=== PATIENT | male | born 1995 | race Caucasian/White ===

== ENCOUNTER 2020-02-26 12:39 | Emergency (ER) | payer SELFPAY ==
[~2020-02-26] VITALS: Ht 167.6 cm; Wt 59.0 kg
[2020-02-26] MEDS ORDERED: LORazepam Inj 2mg/ml 1ml IM ONE (12:45)
[2020-02-26] MEDS ORDERED: DiphenhydrAMINE 50mg/ml Inj IM ONE (12:45)
[2020-02-26] MEDS ORDERED: Haloperidol 5mg/ml Inj IM ONE ×2 (12:45→16:15)
--- NOTE | 2020-02-26 13:30 | NUR ---
brought in by prai with complaints patient has been taking patient to [facility] for [facility] eval due to bizzrae behavior on the way per officers he hit his head on the car window and sustained lacerstion on forehead. so officers brought him to er and palced him on 3860 hold
--- NOTE | 2020-02-26 13:35 | NUR ---
ED Nurse Note: Patient presented bizarre, screaming out loud, spitting on the nurses, refusing all care. Patient was plaxced on 5150 hold by Officer Jarad barr # [id number].
--- NOTE | 2020-02-26 13:38 | NUR ---
ED Nurse Note: patient was undressed, all pts belongings in locker #2
--- NOTE | 2020-02-26 14:45 | NUR ---
ED Nurse Note: IV established on left AC 18ga, blood collected sent to lab
[2020-02-26 15:20] VITALS: BP 136/78
--- NOTE | 2020-02-26 15:44 | Diagnostic Imaging Report ---
Indications: Trauma, forehead laceration, pain Technique: Spiral acquisitions obtained through the brain. Angled axial and coronal 5 x 5 mm slices were reconstructed. Total dose length product 1018 mGycm. CTDI vol(s) 53 mGy. Dose reduction achieved using automated exposure control Comparison: None. Findings: No acute intracranial hemorrhage or edema. No mass effect or midline shift. Normal wallace-white differentiation. Normal size ventricles and extra axial CSF spaces. Visualized orbits and sinuses are unremarkable. The calvarium is intact. The mastoids are clear. Impression: Negative The CT scanner at [facility] is accredited by the [employer] and the scans are performed using protocols designed to limit radiation exposure to as low as reasonably achievable to attain images of sufficient resolution adequate for diagnostic evaluation.
[2020-02-26 15:52] LABS: BASOPHILS % (AUTO) 0.6 % (0.0-2.0); EOSINOPHILS % (AUTO) 0.1 % (0.0-3.0); HEMATOCRIT 49.1 % (42.0-52.0); HEMOGLOBIN 16.6 G/DL (14.2-18.0); LYMPHOCYTES % (AUTO) 7.7 % (20.0-45.0); MEAN CORPUSCULAR VOLUME 97 FL (80-99); MONOCYTES % (AUTO) 3.2 % (1.0-10.0); NEUTROPHILS % (AUTO) 88.4 % (45.0-75.0); PLATELET COUNT 271 K/UL (150-450); RED BLOOD COUNT 5.05 M/UL (4.70-6.10); RED CELL DISTRIBUTION WIDTH 12.5 % (11.6-14.8); WHITE BLOOD COUNT 17.5 K/UL (4.8-10.8)
[2020-02-26 17:55] VITALS: BP 74/78
[2020-02-26 18:17] LABS: ANION GAP 13 mmol/L (5-15); BLOOD UREA NITROGEN 15 mg/dL (7-18); CALCIUM 9.2 MG/DL (8.5-10.1); CARBON DIOXIDE 24 MMOL/L (21-32); CHLORIDE 105 MMOL/L (98-107); SODIUM 142 MMOL/L (136-145)
[2020-02-26 18:22] LABS: ALANINE AMINOTRANSFERASE 32 U/L (12-78); ALKALINE PHOSPHATASE 87 U/L (46-116); ASPARTATE AMINO TRANSFERASE 60 U/L (15-37); BILIRUBIN,TOTAL 0.3 MG/DL (0.2-1.0)
--- NOTE | 2020-02-26 18:32 | NUR ---
ED Nurse Note: patient awake, AAO x4, all VSS at this time was able to ambulate to the bathroom with steady gait, sandwsiches and juice were provided
--- NOTE | 2020-02-26 19:11 | Emergency Room Report ---
History of Present Illness General Chief Complaint: Behavioral Complaint Source: Patient, EMS Present Illness HPI 25-year-old male with possible underlying schizophrenia bipolar disorder brought in by [employer] on a 5150 hold. PD was on his way to draw the patient at [facility] on a 5150 hold for danger to others as he was being aggressive toward an employee at [employer]. In route patient started hitting his head to to the barrier in PD's car and got a laceration on forehead. PD decided with the patient here for medical clearance and placing him here on a 5150 hold. Patient is excessively combative, using foul language. Patient has been placed in rest raints. Administration of Haldol, Benadryl, Ativan had to be done immediately. 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 Patient History Past Surgical History: unable to obtain Family History: unable to obtain Immunizations: other Reviewed Nursing Documentation: PMH: Agreed; PSxH: Agreed Nursing Documentation-PMH Past Medical History: Deferred Review of Systems All Other Systems: negative except mentioned in HPI Physical Exam Vital Signs Date Time Temp Pulse Resp B/P (MAP) Pulse Ox O2 Delivery O2 Flow Rate FiO2 02/26/20 13:25 96.8 121 20 141/79 (99) 96 Room Air Sp02 EP Interpretation: reviewed, normal General Appearance: alert/responsive Head: other - Laceration noted forehead Eyes: PERRL, lids + conjunctiva normal ENT: hearing intact, no angioedema Neck: supple/symm/no masses Respiratory: effort normal, no rhonchi, no wheezing Cardiovascular: regular rate, rhythm, no murmur, gallop, rub Gastrointestinal: non-tender, no mass, non-distended, no rebound/guarding, normal bowel sounds Musculoskeletal: gait & station normal Neurologic: oriented x3, sensory intact, normal speech Lymphatic: normal inspection Procedures Critical Care Time Critical Care Time Total critical care time; approximately 31 minutes. Due to a high probability of clinically significant, life threatening deterioration, the patient required my highest level of preparedness to intervene emergently and I personally spent this critical care time directly and personally managing the patient. This critical care time included obtaining a history; examining the patient; pulse oximetry; ordering and reviewing of studies; arranging urgent treatment with development of a management plan; evaluation of patient's response to treatment; frequent reassessment; and, discussions with other providers. This critical care time was performed to assess and manage the high probability of imminent, life-threatening deterioration that could result in multiorgan failure it was exclusive of separate billable procedures and treating other patients and teaching time. Please see MDM section and the rest of the note for further information on patient assessment and treatment. Laceration/Wound Repair Laceration/Wound Repair : Consent: Verbal Wound Location: head Wound's Depth, Shape: superficial Wound Length (cm): 1 Wound Explored: contaminated Wound Repaired With: Dermabond Layer Closure?: Yes Sterile Dressing Applied?: Yes Splint Applied?: No Sling Applied?: No Patient Tolerated: Well Complications: None Medical Decision Making PA Attestation All my diagnosis and treatment plans were reviewed ad discussed with my supervising physician Dr. Jeffers Diagnostic Impression: Primary Impression: Self-destructive behavior Additional Impression: Laceration ER Course 25-year-old male with possible underlying schizophrenia bipolar disorder brought in by [employer] on a 5150 hold. PD was on his way to draw the patient at [facility] on a 5150 hold for danger to others as he was being aggressive toward an employee at [employer]. In route patient started hitting his head to to the barrier in PD's car and got a laceration on forehead. PD decided with the patient here for medical clearance and placing him here on a 5150 hold. Patient is excessively combative, using foul language. Patient has been placed in restraints. Administration of Haldol, Benadryl, Ativan had to be done immediately. Ddx considered but are not limited to: generalized anxiety disorder, panic attack, depression with psychotic feature, bipolar disorder, drug overdose Vital signs: are WNL, pt. is afebrile H&PE are most consistent with: Self-destructive behavior, forehead laceration ORDERS: Psychiatric order set ED INTERVENTIONS: Dermabond, NS bolus After several hours of ED and administration of medication patient woke up, remember exactly what has happened, remember how he injured his head, apologized for his behavior, and was compliant Patient is medically cleared Patient to be transferred to psychiatric facility Last Vital Signs Date Time Temp Pulse Resp B/P (MAP) Pulse Ox O2 Delivery O2 Flow Rate FiO2 02/26/20 17:55 96.8 80 18 74/78 98 Room Air Disposition: PSYCH HOSP/UNIT Condition: Stable Referrals: NOT CHOSEN IPA/,REFERRING (PCP) Ciara Pandey Feb 26, 2020 19:11
--- NOTE | 2020-02-26 19:17 | NUR ---
HAND-OFF: Report given to LEW Warner..
--- NOTE | 2020-02-26 19:19 | NUR ---
ED Nurse Note: received report from giacomo salazar.
--- NOTE | 2020-02-26 19:55 | NUR ---
ED Nurse Note: Repeat alcohol level sent
[2020-02-26 20:21] LABS: APPEARANCE,URINE TURBID; BILIRUBIN, URINE NEGATIVE (NEGATIVE); GLUCOSE, URINE (UA) NEGATIVE (NEGATIVE); KETONES,URINE 2+ (NEGATIVE); LEUKOCYTE ESTERASE ,URINE 1+ (NEGATIVE); NITRITE,URINE NEGATIVE (NEGATIVE); PH,URINE 6 (4.5-8.0); PROTEIN,URINE 2+ (NEGATIVE); UROBILINOGEN,URINE 1 MG/DL (0.0-1.0)
[2020-02-26 20:24] LABS: COLOR,URINE YELLOW
[2020-02-26 22:05] VITALS: BP 112/75
--- NOTE | 2020-02-26 22:06 | NUR ---
ED Nurse Note: patient resting in bed, calm and cooperative. nad noted.
[2020-02-27 01:00] VITALS: BP 118/74
--- NOTE | 2020-02-27 04:00 | NUR ---
ED Nurse Note: patient is calm and cooperative, resting comfortably in bed.
[2020-02-27 05:37] VITALS: BP 115/72
[2020-02-27] MEDS ORDERED: LORazepam 1mg tab ORAL ONE (06:45)
[2020-02-27] MEDS ORDERED: Thiamine 100mg tab ORAL ONE (07:00)
--- NOTE | 2020-02-27 07:30 | NUR ---
HAND-OFF: Report given to giacomo andrews.
--- NOTE | 2020-02-27 07:48 | NUR ---
ED Nurse Note: pt calm and cooperative with rn. tolerates meds given well. awaiting breakfast tray. pt aware awaiting awaiting psych placement. amb steady gait to brp. denies c/o at this time.
--- NOTE | 2020-02-27 10:47 | NUR ---
ED Nurse Note: per dr hart pt is cleared to be off 5150 hold. pt denies SI/HI. pt is calm with staff. pt relates he feels safe to go back to his area on the street and declines placement assistance. iv site out intactly.
--- NOTE | 2020-02-27 10:48 | NUR ---
ED Nurse Note: dr fowler aware of dr hart recommendations.
[2020-02-27 11:21] VITALS: BP 122/76
--- NOTE | 2020-02-27 11:21 | NUR ---
ER DISCHARGE NOTE: Patient is cleared to be discharged per Dr Lux and LUZ, pt is aox4, on room air, with stable vital signs. pt was given dc instructions, pt was able to verbalize understanding, pt id band and iv site removed without complications. pt is able to ambulate with steady gait. pt took all belongings.
--- NOTE | 2020-02-27 15:42 | Emergency Room Report ---
Physical Exam Vital Signs Date Time Temp Pulse Resp B/P (MAP) Pulse Ox O2 Delivery O2 Flow Rate FiO2 02/26/20 13:25 96.8 121 20 141/79 (99) 96 Room Air Sp02 EP Interpretation: reviewed, normal Medical Decision Making Diagnostic Impression: Primary Impression: Alcohol abuse Additional Impression: Marijuana abuse ER Course Differential diagnosis includes alcohol intoxication, alcohol withdrawal, hypoglycemia, drug intoxication or overdose, head injury, among others. Patient here on 5150 hold by [employer]. Medically cleared. Patient was given time to sober. He has reactive leukocytosis on labs, but otherwise afebrile. No sings of infection. On my evaluation, patient is clinically sober, AOx4 and has no complaints. Psych Dr Kirby evaluated patient at bedside now that he is now sober and lifted the hold. Recommends f/u outpatient with his therapist, which he saw 2 weeks ago. Does not recommend dc with new prescription as he needs to be sober for 1 month until trialed on new psych meds. Patient does not endorse SI HI auditory or visual hallucinations to me. No psych emergency apparent at this time. The patient has no significant tremors or tachycardia, and their presentation seems most consistent with alcohol intoxication without withdrawal, and he is now sober after several hours of ED observation. I informed him of his lab work, recommended IV and IVF/abx, but he declines at this time and states he would rather just go home. - REASSESSMENT - After serial neurologic exams in the emergency department, the patients mental status significantly improved. The patient was able to follow commands and is clinically sober. They have no focal neurologic deficits and were able to ambulate with a steady gait without assistance. The patients presentation seems to be consistent with alcohol intoxication, which has resolved, without any complications such as alcohol withdrawal, head injury, GI bleeding, or intracranial bleeding. The patient appears to be safe for discharge home. Patient understands not to drive and appears able to care for themselves. A Network Security Officer consult was offered to the patient prior to discharge but the patient declined. All needs were met during this ED visit including food and water, change of clothes, jail referral/resources, and transportation. Last Vital Signs Date Time Temp Pulse Resp B/P (MAP) Pulse Ox O2 Delivery O2 Flow Rate FiO2 02/27/20 11:21 97.0 79 16 122/76 99 Room Air Disposition: HOME, SELF-CARE Admit Decision Time: 12:30 Condition: Stable Referrals: [facility] Patient Instructions: Alcohol Abuse and Nutrition, Bipolar Disorder Additional Instructions: Instructions for patient/logging equipment operator: Follow up with your physician in 1-2 days. Stay away from drinking alcohol and stop doing drugs Follow-up with your doctor sooner if your condition requires a more timely clinical reevaluation. Please follow-up with your outpatient psychiatrist as discussed per Dr Kirby. Return to the emergency department immediately if you feel that your condition is worsening or if you have any new or concerning symptoms. Review your discharge instructions and take any prescriptions given as instruc bella. [facility] PROVIDES FREE OR LOW-COST HEALTH SERVICES TO PEOPLE WHO CAN SHOW PROOF THAT THEY LIVE IN [facility]. TO FIND MORE CLINICS PARTNERED WITH THE [facility] TO PROVIDE SERVICE, PLEASE CALL . Kady Pro D.O. Feb 27, 2020 15:42
== END 2020-02-27 11:21 | disposition home or self-care (01) ==
LOC: EMR 13:00
DX: F91.8 Other conduct disorders (principal); S01.81XA Laceration without foreign body of other part of head, initial encounter; W22.8XXA Striking against or struck by other objects, initial encounter; Y93.89 Activity, other specified; Y92.810 Car as the place of occurrence of the external cause
CPT/HCPCS: 12011; 36415; 70450; 80053; 80307; 81003; 85025; 87086; 96360; 96372; 99291; G0480; J1200; J1630; J7030